=== PATIENT | female | born 1935 | race Caucasian/White ===

== ENCOUNTER 2016-07-26 13:19 | Observation (INO) | payer OTHER, MEDICAID ==
[~2016-07-26] VITALS: Ht 149.9 cm; Wt 84.0 kg
[2016-07-26] MEDS: PANTOPRAZOLE 40MG TAB (PROTONIX) PO SCH (09:00)
[~2016-07-26 13:19] MED LIST: AMLO5TAB2 PO; ASPI325T PO; ATEN50TA2 PO; CELE40TA PO; NITR4TASL SL; TRAM50TA2 PO
[2016-07-26] MEDS ORDERED: LAC-12LO5 TOP (13:43)
[2016-07-26] MEDS ORDERED: SENN8.6T7 PO (13:43)
[2016-07-26] MEDS ORDERED: D 50CAP PO (13:43)
[2016-07-26] MEDS ORDERED: LORA-376 PO (13:43)
[2016-07-26] MEDS ORDERED: ASPI81TA7 PO (13:43)
[2016-07-26 15:50] LABS: BASO % 0.2 % (0.0-1.0); EOS # 0.3 K/mm3 (0.0-0.50); EOS % 3.1 % (0.0-3.0); LARGE UNSTAINED CELL # 0.1 K/mm3 (0.0-0.4); LYMPH % 17.9 % (24.0-44.0); MEAN CORPUSCULAR HEMOGLOBIN 27.1 pg (27.0-33.0); MEAN CORPUSCULAR HGB CONC 32.3 g/dl (32.0-36.5); MEAN CORPUSCULAR VOLUME 83.9 fl (80.0-96.0); MONO # 0.6 K/mm3 (0.0-0.8); MONO % 5.6 % (0.0-5.0); NEUTROPHILS # 7.6 K/mm3 (1.8-7.7); NEUTROPHILS % 72.2 % (36.0-66.0); PLATELET COUNT, AUTOMATED 262 k/mm3 (150-450); RED CELL DISTRIBUTION WIDTH 14.7 % (11.5-14.5); WHITE BLOOD COUNT 10.5 K/mm3 (4.0-10.0)
[2016-07-26 15:52] LABS: ALBUMIN 3.5 GM/DL (3.2-5.2); ALBUMIN/GLOBULIN RATIO 0.97 (1.00-1.93); ALKALINE PHOSPHATASE 99 U/L (45-117); ALT/SGPT 11 U/L (12-78); ANION GAP 9 MEQ/L (8-16); AST/SGOT 12 U/L (15-37); BILIRUBIN,DIRECT < 0.1 MG/DL (0.0-0.2); BILIRUBIN,TOTAL 0.2 MG/DL (0.2-1.0); BLOOD UREA NITROGEN 18 MG/DL (7-18); CALCIUM LEVEL 9.4 MG/DL (8.8-10.2); CARBON DIOXIDE LEVEL 26 MEQ/L (21-32); CHLORIDE LEVEL 106 MEQ/L (98-107); CREATININE FOR GFR 0.83 MG/DL (0.55-1.02); GLOMERULAR FILTRATION RATE > 60.0 (>32); GLUCOSE, FASTING 89 MG/DL (83-110); POTASSIUM SERUM 4.3 MEQ/L (3.5-5.1); SODIUM LEVEL 141 MEQ/L (136-145); TOTAL PROTEIN 7.1 GM/DL (6.4-8.2)
--- NOTE | 2016-07-26 15:53 | REP ---
Clinical: Abdominal pain. Comparison: 08/27/2011. Findings: Lung bases demonstrate chronic changes along with mild cardiomegaly and atherosclerotic changes to the visualized coronary arteries. Liver, spleen, pancreas, bilateral adrenal glands are normal for noncontrast evaluation. The patient is status post cholecystectomy. Kidneys demonstrate mild age-related changes without hydroureteronephrosis. The enteric system is without obstruction or acute inflammatory process. See sigmoid diverticulosis noted without acute diverticulitis. Pelvis demonstrates partially collapsed normal bladder and evidence for prior hysterectomy. No pelvic fluid or ascites. No adenopathy. No free air. No mass lesion. Atherosclerotic changes of the aorta and vasculature noted without aneurysm. Musculoskeletal structures demonstrate degenerative changes. Impression: Sigmoid diverticulosis without acute diverticulitis. Chronic changes as described above. No acute intra-abdominal or pelvic pathology appreciated. Signed by Akshat Sprague MD 07/26/2016 03:44 P
[2016-07-26 16:28] LABS: INR 1.12
[2016-07-26] MEDS ORDERED: CITA40TA4 PO (18:24)
[2016-07-26] MEDS ORDERED: MELA5TAB14 PO (18:24)
[2016-07-26] MEDS ORDERED: DONETAB6 PO (18:24)
[2016-07-26] MEDS ORDERED: LORA2TAB9 PO (18:24)
[2016-07-26] MEDS ORDERED: AMLO5TAB2 PO (18:24)
[2016-07-26] MEDS ORDERED: ASPI1TAB PO (18:24)
[2016-07-26] MEDS ORDERED: ATEN50TA2 PO (18:24)
[2016-07-26] MEDS ORDERED: VITA200015 PO (18:24)
[2016-07-26] MEDS ORDERED: ACETAMINOPHEN TAB 650MG DOSE (2X325MG) PO PRN (19:00)
--- NOTE | 2016-07-26 19:39 | HPE ---
DATE OF ADMISSION: 07/26/2016 PRIMARY CARE PROVIDER: Rk Mehta CHIEF COMPLAINT: Rectal bleed. HISTORY OF PRESENT ILLNESS: This is an 81-year-old with underlying medical history of depression, dementia, hypertension, coronary artery disease, osteoarthritis, advanced dementia, poor historian, history provided by family; niece. As per family, they have been noticing for the past three months been having rectal bleeding, bright red blood, had been by doctor, was told that she should be on stool softener for possible fissure, family also noticed about 20 pound weight loss over the past 5 months and was concerned about the patient. Patient was severely demented and unable to provide any history. Denies any significant symptoms. Does not even know why she is at the hospital. Denies any chest pain, pressure or discomfort. Reported some abdominal pain but that was a couple of months ago. Patient wanted to go home. Family is in the process of arranging for her to go to a retirement facility and is currently not able to take care of herself because she tends to wonder, opening the stoves and letting the dogs out and has not been safe at home. Fecal occult was done in the emergency room, which was negative. Patient H H has been stable, Family currently cannot take care of the patient, would like the patient to be admitted for possible placement and also monitor the patient to see if rectal bleeding recurs. Otherwise no further history possible. Patient is a very poor historian. ALLERGIES: No known drug allergies reported. PAST MEDICAL HISTORY: Hypertension. Coronary artery disease. Depression. Severe dementia. PAST SURGICAL HISTORY: Bilateral knee replacement. Possible cholecystectomy. Family does not known. SOCIAL HISTORY: Patient used to smoke, but not anymore. Does not drink alcohol or beverages. Lives at home with family. FAMILY HISTORY: Unable to obtain. REVIEW OF SYSTEMS: Negative. Patient very poor historian. Denies all systems. 11-point review of systems negative except for those mentioned in the history of present illness. HOME MEDICATION - Norvasc 5 mg by mouth daily - aspirin 81 mg by mouth daily - atenolol 50 mg by mouth daily - vitamin D 2,000 units by mouth daily - citalopram 40 mg by mouth at bedtime - donepezil 10 mg by mouth at bedtime - lorazepam 2 mg by mouth at bedtime - melatonin 5 mg by mouth at bedtime PHYSICAL EXAMINATION: VITAL SIGNS: Temperature 97.5 pulse 56, respiratory 16, blood pressure 129/65, pulse ox 95% om room air. GENERAL: Patient comfortable, alert, in no acute distress. No oriented. Oriented to person only. PULMONARY: Bilateral clear to auscultation. Patient obese. CARDIAC: Regular. S1, S2. ABDOMEN: Soft, non-tender, non-distended. EXTREMITIES: No edema bilateral lower extremity. LABORATORY DATA: WBC 10.5, H H 13.8/42.9, platelets 262. CHEMISTRY: Sodium 141, potassium 4.3, chloride 106, bicarbonate 26, BUN 18, creatinine 0.8, lipase negative. IMAGING: CT abdomen negative. ASSESSMENT AND PLAN: T his is an 81-year-old female patient with underlying medical history of severe dementia, depression, hypertension, coronary artery disease, admitted for possible rectal bleeding and severe dementia, unable to be cared at home. PROBLEMS: 1. Rectal bleeding. Fecal occult negative in the emergency room. Monitor H H. Follow up occult stool if happens again. We will monitor closely. 2. Severe dementia. Supportive care. Continue Aricept. [facility] ([facility]FS) consulted for placement. 3. Depression and anxiety. Continue home medication as ordered. 4. Hypertension. Continue home medication. Continue to monitor blood pressure. 5. Coronary artery disease. Continue aspirin, atenolol, continue to monitor. 6. Deep vein thrombosis prophylaxis given. Possible rectal bleeding, will due to renal dosing and compression device. Will monitor for rectal bleeding. DISPOSITION: Pending social work consultation.
[2016-07-26] MEDS: LORazepam 2 MG TAB PO SCH (21:07)
[2016-07-26] MEDS: CitaloPRAM (CeleXA) 20 MG TAB PO SCH (21:07)
[2016-07-26] MEDS: DONEPEZIL 5 MG TAB PO SCH (21:07)
[2016-07-26] MEDS: SENOKOT S TAB PO SCH (21:07)
[2016-07-26 22:00] VITALS: BP 160/78
[2016-07-27 06:00] VITALS: BP 170/96
[2016-07-27 06:44] LABS: MEAN CORPUSCULAR HGB CONC 32.5 g/dl (32.0-36.5); MEAN CORPUSCULAR VOLUME 83.2 fl (80.0-96.0); RED CELL DISTRIBUTION WIDTH 14.7 % (11.5-14.5); WHITE BLOOD COUNT 7.4 K/mm3 (4.0-10.0)
[2016-07-27 06:50] LABS: ANION GAP 9 MEQ/L (8-16); BLOOD UREA NITROGEN 14 MG/DL (7-18); CALCIUM LEVEL 8.8 MG/DL (8.8-10.2); CARBON DIOXIDE LEVEL 27 MEQ/L (21-32); CHLORIDE LEVEL 107 MEQ/L (98-107); CREATININE FOR GFR 0.62 MG/DL (0.55-1.02); GLOMERULAR FILTRATION RATE > 60.0 (>32); GLUCOSE, FASTING 81 MG/DL (83-110); MAGNESIUM LEVEL 1.9 MG/DL (1.8-2.4); POTASSIUM SERUM 3.9 MEQ/L (3.5-5.1); SODIUM LEVEL 143 MEQ/L (136-145)
[2016-07-27] MEDS: SENOKOT S TAB PO SCH ×2 (08:51→21:35)
[2016-07-27] MEDS: VITAMIN D 1,000 INTERNATIONAL UNITS TABLET PO SCH (08:52)
[2016-07-27] MEDS: ASPIRIN 81 MG ENTERIC TAB PO SCH (08:52)
[2016-07-27] MEDS: PANTOPRAZOLE 40MG TAB (PROTONIX) PO SCH (08:52)
[2016-07-27] MEDS ORDERED: amLODIPine 5 MG TAB PO SCH (09:00)
[2016-07-27] MEDS ORDERED: ATENOLOL 50 MG TAB PO SCH (09:00)
--- NOTE | 2016-07-27 10:08 | IPNPDOC ---
Subjective Date Seen The patient was seen on 07/27/16. Subjective Chief Complaint/HPI The patient is a 81-year-old female admitted with a reason for visit of Dementia /Gi Bleed. Events since last encounter no complaints this am though does complain of some abdominal tenderness on palpation , no chest pain , no cough or phlegm , no diarrhea or vomiting . Objective Physical Examination General Exam: Positive: Alert, Cooperative, No Acute Distress Eye Exam: Positive: Conjunctiva & lids normal, EOMI, PERRLA, Negative: Sclera icteric ENT Exam: Positive: Atraumatic, Mucous membr. moist/pink, Pharynx Normal Neck Exam: Positive: Supple, Negative: JVD, thyromegaly Chest Exam: Positive: Normal air movement, Rales (left base) Heart Exam: Positive: Normal S1, Normal S2, Rate Normal, Regular Rhythm, Negative: Murmurs, Rubs Abdomen Exam: Positive: Normal bowel sounds, Soft, Tenderness (right and left illiac fossa and hypogastrium), Negative: Hepatospenomegaly Extremity Exam: Positive: Normal pulses, Negative: Clubbing, Cyanosis, Edema Skin Exam: Positive: Nl turgor and temperature, Negative: Breakdown, Rash Assessment /Plan Problems (1) Abnormal urinalysis Status: Acute Problem Text: UA with 13 wbcs urine culture pending, does not complain of any dysuria no fever. (2) GI bleed Status: Chronic Problem Text: has been having intermittent bleeding for 3 months, no drop in h/ h here guaic in ED negative will recheck fecal occult blood possibly diverticular or hemorrhoidal bleed or anal fissure (3) Diverticulosis Status: Chronic (4) History of coronary artery disease Status: Chronic (5) Depression Status: Chronic (6) Dementia Status: Chronic Problem Text: family can no longer take care of her at home and requests NH placement. will consult PFS. poor oral intake with 20lb weight loss in last 3 months. (7) Hypertension Status: Chronic Problem Text: continue amlodipine and atenolol with hold parameters. (8) Gait instability Status: Chronic (9) Pulmonary hypertension Status: Chronic (10) Diastolic CHF Status: Chronic Response to Treatment: Stable Problem Text: so signs of fluid overload at present. Plan/VTE VTE Prophylaxis Ordered?: Yes VS, I&O, 24H, Fishbone Vital Signs/I&O Vital Signs Date Time Temp Pulse Resp B/P Pulse Ox O2 Delivery O2 Flow Rate FiO2 07/27/16 08:58 55 159/72 07/27/16 06:00 97.3 20 92 Room Air I&O- Last 24 Hours up to 6 AM 07/27/16 06:00 Intake Total 0 ml Output Total 200 ml Balance -200 ml Laboratory Data 24H LABS Laboratory Tests 2 07/26/16 14:38: Aspartate Amino Transf (AST/SGOT) 12L, Alanine Aminotransferase (ALT/SGPT) 11L, Alkaline Phosphatase 99, Total Bilirubin 0.2, Direct Bilirubin < 0.1, Albumin 3.5, Albumin/Globulin Ratio 0.97L, Anion Gap 9, White Blood Count 10.5H, Red Blood Count 5.11, Hemoglobin 13.8, Hematocrit 42.9, Mean Corpuscular Volume 83.9 , Mean Corpuscular Hemoglobin 27.1, Mean Corpuscular Hemoglobin Concent 32.3, Red Cell Distribution Width 14.7H, Platelet Count 262, Neutrophils (%) (Auto) 72.2H, Lymphocytes (%) (Auto) 17.9L, Monocytes (%) (Auto) 5.6H, Eosinophils (%) (Auto) 3.1H, Basophils (%) (Auto) 0.2, Neutrophils # (Auto) 7.6, Lymphocytes # ( Auto) 2.0, Monocytes # (Auto) 0.6, Eosinophils # (Auto) 0.3, Basophils # (Auto) 0.0, Calcium Level 9.4, Glomerular Filtration Rate > 60.0, Large Unclassified Cells # 0.1, Large Unclassified Cells % 1.0, Lipase 78, Total Protein 7.1 07/26/16 16:03: Prothromb Time International Ratio 1.12, Prothrombin Time 14.5 07/26/16 16:29: Urine Amorphous Sediment , Urine Appearance HAZY, Urine Color YELLOW, Urine pH 5.0, Urine Specific Pierz 1.020, Urine Protein 1+H, Urine Glucose (UA) NEGATIVE, Urine Ketones TRACEH, Urine Urobilinogen 0.2, Urine Bilirubin NEGATIVE , Urine Leukocyte Esterase TRACEH, Urine Bacteria (Auto) 3+H, Urine Blood NEGATIVE, Urine Calcium Carbonate Cryst(Auto) , Urine Calcium Oxalate Cryst ( Auto) , Urine Calcium Phosphate Yesi (Auto) , Urine Cellular Casts , Urine Cystine Crystals , Urine Granular Casts (Auto) , Urine Hyaline Casts (Auto) 0, Urine Leucine Crystals , Urine Mucus (Auto) SMALL, Urine Nitrite NEGATIVE, Urine Oval Fat Bodies (Auto) , Urine RBC (Auto) 2, Urine Renal Epithelial Cells , Urine Sperm (Auto) , Urine Squamous Epithelial Cells 2, Urine Transitional Epithelial Cells , Urine Trichomonas (Auto) , Urine Triple Phosphate Cryst (Auto ) , Urine Tyrosine Crystals , Urine Uric Acid Crystals (Auto) , Urine WBC (Auto ) 12H, Urine Waxy Casts (Auto) , Urine Yeast-Like Cells (Auto) 07/27/16 05:58: Anion Gap 9, Calcium Level 8.8, Glomerular Filtration Rate > 60.0, Blood Urea Nitrogen 14, Creatinine 0.62, Sodium Level 143, Potassium Level 3.9, Chloride Level 107, Carbon Dioxide Level 27, Magnesium Level 1.9 CBC/BMP Laboratory Tests 07/26/16 14:38 Red Blood Count 5.11, Mean Corpuscular Volume 83.9, Mean Corpuscular Hemoglobin 27.1, Mean Corpuscular Hemoglobin Concent 32.3, Red Cell Distribution Width 14.7 H, Neutrophils (%) (Auto) 72.2 H, Lymphocytes (%) (Auto) 17.9 L, Monocytes (%) (Auto) 5.6 H, Eosinophils (%) (Auto) 3.1 H, Basophils (%) (Auto) 0.2, Neutrophils # (Auto) 7.6, Lymphocytes # (Auto) 2.0, Monocytes # (Auto) 0.6, Eosinophils # (Auto) 0.3, Basophils # (Auto) 0.0 07/27/16 05:58 Red Blood Count 4.56, Mean Corpuscular Volume 83.2, Mean Corpuscular Hemoglobin 27.0, Mean Corpuscular Hemoglobin Concent 32.5, Red Cell Distribution Width 14.7 H, Calcium Level 8.8 Microbiology Microbiology 07/26/16 Urine Culture, Received Pending KLAUDIA SPARROW MD Jul 27, 2016 10:07
[2016-07-27 14:00] VITALS: BP 154/72
[2016-07-27] MEDS: DONEPEZIL 5 MG TAB PO SCH (21:35)
[2016-07-27] MEDS: CitaloPRAM (CeleXA) 20 MG TAB PO SCH (21:35)
[2016-07-27] MEDS: LORazepam 2 MG TAB PO SCH (21:35)
[2016-07-27 22:00] VITALS: BP 170/80
[2016-07-28 06:00] VITALS: BP 156/82
[2016-07-28 07:24] LABS: MEAN CORPUSCULAR HEMOGLOBIN 26.4 pg (27.0-33.0); MEAN CORPUSCULAR HGB CONC 31.9 g/dl (32.0-36.5); RED CELL DISTRIBUTION WIDTH 14.7 % (11.5-14.5); WHITE BLOOD COUNT 7.7 K/mm3 (4.0-10.0)
[2016-07-28 08:04] LABS: ANION GAP 6 MEQ/L (8-16); BLOOD UREA NITROGEN 14 MG/DL (7-18); CALCIUM LEVEL 8.8 MG/DL (8.8-10.2); CARBON DIOXIDE LEVEL 29 MEQ/L (21-32); CHLORIDE LEVEL 107 MEQ/L (98-107); CREATININE FOR GFR 0.69 MG/DL (0.55-1.02); GLOMERULAR FILTRATION RATE > 60.0 (>32); GLUCOSE, FASTING 84 MG/DL (83-110); POTASSIUM SERUM 3.8 MEQ/L (3.5-5.1); SODIUM LEVEL 142 MEQ/L (136-145)
[2016-07-28] MEDS ORDERED: ATENOLOL 25 MG TAB PO SCH (09:00)
[2016-07-28] MEDS ORDERED: amLODIPine 10 MG TAB PO SCH (09:00)
[2016-07-28] MEDS: SENOKOT S TAB PO SCH (09:40)
[2016-07-28] MEDS: PANTOPRAZOLE 40MG TAB (PROTONIX) PO SCH (09:40)
[2016-07-28] MEDS: VITAMIN D 1,000 INTERNATIONAL UNITS TABLET PO SCH (09:40)
[2016-07-28] MEDS: ASPIRIN 81 MG ENTERIC TAB PO SCH (09:41)
[2016-07-28 09:42] VITALS: BP 161/69
[2016-07-28] MEDS ORDERED: cefTRIAXone SOD 1 GM in D5W MINI-BAG PLUS 50 ML IV SCH (10:00)
[2016-07-28] MEDS ORDERED: SENN1TAB2 PO (10:56)
[2016-07-28] MEDS ORDERED: AMLO10TA2 PO (10:56)
[2016-07-28] MEDS ORDERED: CEFD1CAP8 PO (10:56)
[2016-07-28] MEDS ORDERED: ATEN25TA PO (10:56)
--- NOTE | 2016-07-28 14:07 | DSES ---
DATE OF ADMISSION: 07/26/2016 DATE OF DISCHARGE: 07/28/2016 PRIMARY CARE PROVIDER: Rk Mehta DISCHARGE DIAGNOSES: 1. Urinary tract infection with Escherichia (E) coli. 2. Advanced dementia. 3. Gait instability and history of recurrent falls. 4. Intermittent rectal bleeds, possibly thought to be either from diverticular, hemorrhoidal or anal fissure. 5. Diverticulosis. 6. Coronary artery disease. 7. Depression. 8. Hypertension. 9. Pulmonary hypertension. 10. Diastolic congestive heart failure (CHF), chronic. 11. Obesity. DISCHARGE MEDICATIONS: - cefdinir 300 mg by mouth twice a day - amlodipine 10 mg by mouth daily - atenolol 25 mg by mouth daily - Senna plus two tablets by mouth twice a day - aspirin 81 mg by mouth daily - cholecalciferol 2000 units by mouth daily - citalopram 40 mg at bedtime - donepezil 10 mg at bedtime - lorazepam 2 mg at bedtime - melatonin 5 mg at bedtime HOSPITAL COURSE: This is an 81-year-old female who was brought in by family for recurrent episodes of rectal bleeding, which has been going on for the past three months and a 20 pound weight loss for over the past 5 months. This time the patient, over the past 2 or 3 days prior to admission, the patient was having more bright red blood per rectum so was brought to the emergency room. In the emergency department, the patient's coag was negative. The patient's hemoglobin and hematocrit were stable; however, the family expressed that they are unable to take care of the patient at home because of the advanced dementia. She has dangerous behaviors at home, as well as recurrent falls and they have been trying to place the patient in a long-term halfway to the community for the past year and have been unable to do so, so they would not be able to take her home, so the patient was admitted to the hospital. On presentation, the patient is mildly confused and the patient also was found to have dark urine. Urine cultures have come back for E coli. The patient was managed for urinary tract infection (UTI) and received one dose of ceftriaxone. The patient's hemoglobin and hematocrit remained stable and did not have any further rectal bleeding in the hospital. At present, the patient's vitals are stable, functioning at baseline. The patient is going to be discharged to long-term halfway. PHYSICAL EXAMINATION: VITAL SIGNS: Temperature 97, pulse 65, respiratory rate 20, blood pressure 161/69, pulse oximetry 90% on room air. GENERAL: The patient is awake, alert, oriented to place and person. HEENT: Normocephalic, atraumatic. Moist mucous membranes. Anicteric eyes. CHEST: Clear to auscultation. CARDIOVASCULAR: S1, S2 regular. There is a short systolic murmur present. No rub or gallop. ABDOMEN: Obese, soft, nontender. Bowel sounds present. EXTREMITIES: No edema. Echocardiogram from 2016 shows left ventricular ejection fraction of 55% with mild global left ventricular hypokinesia, grade 1 left ventricular diastolic dysfunction, moderate left atrial dilation, moderately severe pulmonary artery pressure of 58 showing severe pulmonary hypertension, aortic valve sclerosis but no stenosis, mild aortic regurgitation, mild mitral annular calcification, very mild mitral regurgitation and very mild tricuspid regurgitation. LABORATORY DATA: WBC 7.7, hemoglobin 12.7, platelets 227. Sodium 142, potassium 3.8, chloride 107, bicarbonate 29, BUN 14, creatinine 0.6, glucose 84, calcium 8.8, magnesium 2, INR 1.1. Urine culture growing E coli. Stool for occult blood negative times two. Abdomen and pelvis CT showed sigmoid diverticulosis without diverticulitis, chronic changes. Status post cholecystectomy. Prior hysterectomy. No abdominal mass, fluid or lymphadenopathy. No free air. The aorta and vasculature are without aneurysm. Musculoskeletal structures show degenerative changes. Lung bases demonstrate chronic changes along with mild cardiomegaly and atherosclerotic changes in the visualized portions of the coronary arteries. DISPOSITION: The patient is discharged to long-term halfway in [place]. DISCHARGE INSTRUCTIONS: The patient is to followup with physician at the halfway. Regular diet. Activity as tolerated.
== END 2016-07-28 11:59 ==
LOC: M ED 15:39 → M ED INP 18:46 → M MSPAV 20:29
PROVIDERS: ADMIT Hospitalist; ATTEND Internal Medicine Nephrology
DX: N39.0 Urinary tract infection, site not specified (principal); B96.20 Unspecified Escherichia coli [E. coli] as the cause of diseases classified elsewhere; K62.5 Hemorrhage of anus and rectum; F03.90 Unspecified dementia, unspecified severity, without behavioral disturbance, psychotic disturbance, mood disturbance, and anxiety; R26.89 Other abnormalities of gait and mobility; Z91.81 History of falling; K57.30 Diverticulosis of large intestine without perforation or abscess without bleeding; Z79.899 Other long term (current) drug therapy; I25.10 Atherosclerotic heart disease of native coronary artery without angina pectoris; I10 Essential (primary) hypertension; F32.9 Major depressive disorder, single episode, unspecified; I27.89 Other specified pulmonary heart diseases; I50.32 Chronic diastolic (congestive) heart failure; Z79.82 Long term (current) use of aspirin; Z87.891 Personal history of nicotine dependence
CPT/HCPCS: 36415; 51701; 74176; 80048; 80076; 81001; 82270; 83690; 83735; 85025; 85027; 85610; 86850; 86900; 86901; 87088; 87186; 96374; 97161; 99284; G0378; J0696